=== PATIENT | male | born 1945 | race Caucasian/White ===

== ENCOUNTER 2022-03-09 11:24 | Emergency (ER) | payer MEDICARE, SELFPAY ==
[2022-03-09 11:58] VITALS: PULSE 85; RESP 18; TEMP 36.8; O2SAT 94; BMI 27.3
--- NOTE | 2022-03-09 12:03 | XRR_ITS ---
PROCEDURE INFORMATION: Exam: XR Left Shoulder Exam date and time: 03/09/2022 1:30 PM Age: 77 years old Clinical indication: Injury or trauma; Fall; Blunt trauma (contusions or hematomas); Shoulder; Left TECHNIQUE: Imaging protocol: Radiologic exam of the Left shoulder. Views: 2 or more views. COMPARISON: No relevant prior studies available. FINDINGS: Tubes, catheters and devices: Two lead pacemaker device. Bones/joints: The humeral head is high-riding approaching the undersurface of the acromion. There moderate degenerative changes across the acromioclavicular joint. There are small marginal osteophytes across the glenohumeral joint consistent with osteoarthritic change. Soft tissues: There is a 5 mm osseous density in the soft tissues inferior to the acromioclavicular joint which has a chronic appearance. XR/XR shoulder LT min 2V* [id number] IMPRESSION: 1. Humeral head is high-riding approaching the undersurface of the acromion raising concern for full-thickness rotator cuff tear. MRI of the left shoulder recommended for further evaluation if clinically warranted. 2. 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 3. 5 mm osseous density in the soft tissues inferior to the acromioclavicular joint has a chronic appearance.
--- NOTE | 2022-03-09 14:16 | ED_ITS ---
HPI - Fall General: Chief Complaint: Fall Stated Complaint: Two Falls, left shoulder pain Time Seen by Provider: 03/09/22 13:58 History of Present Illness: 77-year-old male presents with left shoulder pain. Patient reports that he fell yesterday trying to get into the truck. Patient has some painful range of motion and difficulty with stent out to the side. Patient reports no other injury. Review of Systems General: Reports: 10 or more systems reviewed and unremarkable except in HPI and below Musc: Reports: extremity pain and joint pain (Left shoulder) Physical Exam Const: COMMON NORMALS: no acute distress, patient oriented x3 and alert Chest: COMMONS NORMALS: normal inspection of the chest Resp: COMMON NORMALS: normal respiratory effort, No use of accessory muscles and clear to auscultation bilaterally AUSCULTATION: clear to auscultation bilaterally Cardio: COMMON NORMALS: regular rate and regular rhythm RATE: regular rate RHYTHM: regular rhythm GI: COMMON NORMALS: Soft to palpation and non-tender PALPATION: Yes Soft to palpation : COMMON NORMALS: Yes no CVA tenderness BLADDER/KIDNEY EXAM: Yes no CVA tenderness Back/Pelvis: COMMON NORMALS: no CVA tenderness Extremity: RIGHT UPPER EXTREMITY: Yes shoulder joint Right shoulder: Yes Right shoulder joint ROM exam (Decreased range of motion and decreased strength in left shoulder) Neuro: COMMON NORMALS: patient oriented x3, moves all extremities and no focal motor deficits SENSORIUM/ORIENTATION: Yes alert Psych: COMMON NORMALS: cooperative and speech normal SPEECH: Yes normal speech Skin: COMMON NORMALS: no rashes or lesions noted and no wounds GENERAL SKIN EXAM: no rashes or lesions noted Course Vital Signs: Vital signs: Vital Signs Temperature 98.2 F 03/09/22 11:58 Pulse Rate 85 03/09/22 11:58 Respiratory Rate 18 03/09/22 11:58 Pulse Oximetry 94 03/09/22 11:58 Oxygen Delivery Me thod 03/09/22 11:58 MDM - Fall Medical Decision Making Patient with no acute fracture noted on x-ray. Patient does have limited range of motion which is consistent with potential rotator cuff injury consistent with abnormal positioning on x-ray. Patient will be placed in a sling. Patient is from [facility] and they are returning tomorrow and they will follow-up with her primary care provider and cardiovascular disease specialist once they get home. Patient stable discharged home Lab Data Radiology Impressions Shoulder X-Ray 03/09/22 12:03 IMPRESSION: 1. Humeral head is high-riding approaching the undersurface of the acromion raising concern for full-thickness rotator cuff tear. MRI of the left shoulder recommended for further evaluation if clinically warranted. 2. 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 3. 5 mm osseous density in the soft tissues inferior to the acromioclavicular joint has a chronic appearance. Discharge Plan Discharge Patient Disposition: Home Clinical Impression: Injury of left shoulder Condition: Stable Discharge Orders: Discharge ED (Routine); Ordered 03/09/22 Ordered By: Joseph Govea Discharge Diet: Usual diet Discharge Activity: Increase activity as tolerated Patient Instructions: Rotator Cuff Injury (ED), Rotator Cuff Injury Exercises (DC), Opioid Safety, Pain Management Activity Restrictions/Additional Instructions: Please follow-up with your primary care provider once back home for further evaluation with probable PT OT and possible orthopedic surgery consult Tylenol or ibuprofen as needed for discomfort Coding Level of Care Code ED Diesel Tractor Operator for Chg Fwd Exam Comprehensive
== END 2022-03-09 14:25 | disposition home or self-care (01) ==
PROVIDERS: Emergency Provider Student in an Organized Health Care Education/Training Program
DX: S49.92XA Unspecified injury of left shoulder and upper arm, initial encounter (principal); W19.XXXA Unspecified fall, initial encounter
CPT/HCPCS: 73030; 99283